=== PATIENT | female | born 2000 | race Two or more races ===

== ENCOUNTER → 2023-06-17 | Emergency (ER) | payer OTHER ==
[~2023-06-17] VITALS: Ht 154.9 cm; Wt 39.5 kg
[~2023-06-17] MED LIST: ACETAMINOPHEN 325 MG TABLET PO ONE; ACETAMINOPHEN ES 500 MG TABLET ONE; METOCLOPRAMIDE HCL 10 MG/2 ML VIAL IV ONE; METOCLOPRAMIDE HCL 10 MG/2 ML VIAL ONE; diphenhydrAMINE HCL 50 MG/ML VIAL IV ONE; diphenhydrAMINE HCL 50 MG/ML VIAL ONE
[2023-06-17 20:04] VITALS: BP 113/87; TEMP 98; O2SAT 96
== END | disposition home or self-care (01) ==
LOC: ER 16:42
DX: S09.90XA Unspecified injury of head, initial encounter (principal); R51.9 Headache, unspecified; W22.8XXA Striking against or struck by other objects, initial encounter; Y93.89 Activity, other specified; Y92.89 Other specified places as the place of occurrence of the external cause; Y99.8 Other external cause status
CPT/HCPCS: 99285; 96374; 70450; 96375; J1200; J2765